=== PATIENT | female | born 1985 | race African-American/Black ===

== ENCOUNTER 2017-09-28 12:54 | Emergency (ER) | payer SELFPAY ==
[2017-09-28 15:00] LABS: URINE HCG POC HCG NEGATIVE (Negative)
[2017-09-28 15:03] LABS: BASO % 0 % (0-3); EOS # 0.1 x10^3/uL (0.0-0.7); EOS % 1 % (0-3); HEMOGLOBIN 11.5 g/dL (12.0-15.5); LYMPH # 1.9 x10^3/uL (1.0-4.8); LYMPH % 15 % (24-48); MEAN CORPUSCULAR HEMOGLOBIN 25 pg (25-35); MEAN CORPUSCULAR HGB CONC 33 g/dL (31-37); MEAN CORPUSCULAR VOLUME 77 fL (79-100); MONO # 2.4 x10^3/uL (0.0-1.1); MONO % 19 % (0-9); NEUT # 8.3 x10^3uL (1.8-7.7); NEUT % 65 % (31-73); PLATELET COUNT 402 x10^3/uL (140-400); RED BLOOD COUNT 4.54 x10^6/uL (3.50-5.40); RED CELL DISTRIBUTION WIDTH 13.5 % (11.5-14.5); WHITE BLOOD COUNT 12.8 x10^3/uL (4.0-11.0)
[2017-09-28 15:07] LABS: ADD MAN DIFF? YES
[2017-09-28 15:09] LABS: BILIRUBIN,URINE NEGATIVE (NEG); CLARITY,URINE CLOUDY; COLOR,URINE YELLOW; GLUCOSE,URINE NEGATIVE (NEG); NITRITE,URINE POSITIVE (NEG); PROTEIN,URINE 100 mg/dL (NEG-TRACE); UROBILINOGEN,URINE 0.2 mg/dL (0.2 mg/dL)
[2017-09-28 15:10] LABS: ANION GAP 9 (6-14); BLOOD UREA NITROGEN 8 mg/dL (7-20); BUN/CREATININE RATIO 8 (6-20); CALCIUM 8.9 mg/dL (8.5-10.1); CARBON DIOXIDE 30 mmol/L (21-32); CHLORIDE 98 mmol/L (98-107); GFR 78.2; GLUCOSE 96 mg/dL (70-99); POTASSIUM 3.3 mmol/L (3.5-5.1); SODIUM 137 mmol/L (136-145)
[2017-09-28 15:16] LABS: ALBUMIN 3.5 g/dL (3.4-5.0); ALBUMIN/GLOBULIN RATIO 0.7 (1.0-1.7); ALK PHOS 72 U/L (46-116); ALT (SGPT) 42 U/L (14-59); AST (SGOT) 25 U/L (15-37); LIPASE 82 U/L (73-393); TOTAL BILIRUBIN 0.5 mg/dL (0.2-1.0); TOTAL PROTEIN 8.5 g/dL (6.4-8.2)
[2017-09-28] MEDS: ONDANSETRON PF 4 MG/2 ML VIAL. IV (15:30)
[2017-09-28] MEDS: KETOROLAC 30 MG/ML INJ. IV (15:30)
[2017-09-28] MEDS: POTASSIUM CHLORIDE 20 MEQ TABLET.ER. PO (15:30)
[2017-09-28] MEDS: IV NORMAL SALINE 1000ML BAG 1,000 ML IV (15:31)
[2017-09-28 15:34] LABS: BACTERIA,URINE MANY /HPF (0-FEW); SQUAMOUS EPITHELIAL CELL,UR MOD /LPF; TRICHOMONAS,URINE PRESENT; WBC,URINE >40 /HPF (0-4)
[2017-09-28 16:53] LABS: % LYMPHS 11 % (24-48); % MONOS 18 % (0-10); % SEGS 71 % (35-66)
[2017-09-28 16:56] LABS: PLT ESTIMATE ADEQUATE (ADEQUATE)
== END 2017-09-28 17:20 | disposition home or self-care (01) ==
LOC: ER 17:20
DX: N39.0 Urinary tract infection, site not specified (principal)
CPT/HCPCS: 36415; 80053; 81001; 81025; 83690; 85007; 85025; 96361; 96365; 96375; 99284; J0690; J1885; J2405; J7030